=== PATIENT | female | born 1940 | race Caucasian/White ===

== ENCOUNTER 2017-05-31 16:02 | Emergency (ER) | payer MEDICARE, OTHER ==
[2017-05-31 16:09] VITALS: BP 132/72
--- NOTE | 2017-05-31 17:39 | EDM.PDOC ---
ED HPI GENERAL MEDICAL PROBLEM - General Chief Complaint: Lower Extremity Injury/Pain Stated Complaint: FALL VIA NORTH Time Seen by Provider: 05/31/17 16:11 Source of Information: Reports: EMS, Family, RN Notes Reviewed History Limitations: Reports: Physical Impairment - History of Present Illness INITIAL COMMENTS - FREE TEXT/NARRATIVE: 68-year-old female presents emergency department via EMS services for right hip pain, she is a known history of severe dementia limited history can be obtained from her the majority this is taken from family and EMS. State last night while in the bathroom she fell fell on her right side she is complaining of left hip pain was brought in today for difficulty with ambulation she is scheduled to go to [facility] today - Related Data Allergies Allergy/AdvReac Type Severity Reaction Status Date / Time No Known Allergies Allergy Verified 05/31/17 16:09 Home Meds: Home Meds Donepezil HCl [Donepezil HCl] 1 tab PO DAILY 05/31/17 [History] Meclizine [Antivert] 1 tab PO DAILY PRN 05/31/17 [History] Memantine HCl [Namenda Xr] 1 tab PO DAILY 05/31/17 [History] Pravastatin Sodium [Pravastatin Sodium] 10 mg PO DAILY 05/31/17 [History] Sennosides/Docusate Sodium [Senna-Docusate Sodium Tablet] 1 tab PO DAILY [History] Past Medical History HEENT History: Reports: Impaired Vision Psychiatric History: Reports: Dementia Oncologic (Cancer) History: Reports: Other (See Below) Other Oncologic History: skin cancer - Past Surgical History HEENT Surgical History: Reports: Tonsillectomy GI Surgical History: Reports: Other (See Below) Other GI Surgeries/Procedures: reconstructed stomach Social & Family History - Tobacco Use Smoking Status *Q: Never Smoker - Recreational Drug Use Recreational Drug Use: No Review of Systems - Review of Systems Review Of Systems: Unable To Obtain ED EXAM, GENERAL - Physical Exam Exam: See Below Free Text/Narrative:: Lungs are clear to auscultation bilaterally heart and vascular Center regular rate and rhythm S1-S2 patient is tender to palpation over the trochanter on the right side she does have an inward rotation of the right leg Course - Vital Signs Last Recorded V/S: Last Vital Signs Temp 99.3 F 05/31/17 16:04 Pulse 79 05/31/17 16:04 Resp 16 05/31/17 16:04 BP 132/72 05/31/17 16:04 Pulse Ox 98 05/31/17 16:04 - Orders/Labs/Meds Orders: Active Orders 24 hr Category Date Time Status Hip Min 1V w Pelvis Rt [CR] Stat Exams 05/31/17 16:21 Ordered Departure - Departure Time of Disposition: 17:39 Disposition: [facility] Condition: Poor Clinical Impression: Intertrochanteric fracture, hip - Discharge Information Forms: ED Department Discharge - My Orders Last 24 Hours: My Active Orders 05/31/17 16:21 Hip Min 1V w Pelvis Rt [CR] Stat - Assessment/Plan Last 24 Hours: My Active Orders 05/31/17 16:21 Hip Min 1V w Pelvis Rt [CR] Stat Plan: Assessment Acuity = acute Site and laterality = closed intertrochanteric care fracture right hip Etiology = secondary to a fall Manifestations = pain Location of injury = Home Lab values = x-ray describes a fracture above Plan I had a long discussion with the family about whether to treat or not they elected not to provide treatment for her hip fracture, they elected to move to hospice the alf is still willing to accept her consult did the hospital director he agreed to evaluate the patient and provide pain medication relief and we will arrange transfer to the alf, comfort care only on hospice Family was in agreement with the plan all questions were answered, they were instructed to return to the emergency department or call for worsening symptoms. This note was dictated using [employer] voice recognition software please call with any questions.
[2017-05-31] MEDS ORDERED: HYDROmorphone 1 MG/ML Syringe IM ONE (18:16)
--- NOTE | 2017-06-03 10:13 | CR ---
Intertrochanteric fracture right hip with displacement. Remainder intact.
== END 2017-05-31 18:58 ==
LOC: JP.ED 16:02
DX: S72.141A Displaced intertrochanteric fracture of right femur, initial encounter for closed fracture (principal); F03.90 Unspecified dementia, unspecified severity, without behavioral disturbance, psychotic disturbance, mood disturbance, and anxiety; Z98.890 Other specified postprocedural states; Z79.899 Other long term (current) drug therapy; W19.XXXA Unspecified fall, initial encounter; Y92.89 Other specified places as the place of occurrence of the external cause
CPT/HCPCS: 73501; 99284; J1170; 99283